=== PATIENT | female | born 1960 | race Caucasian/White ===

== ENCOUNTER 2022-05-13 15:31 | Emergency (ER) | payer BC ==
[~2022-05-13] VITALS: Ht 160 cm; Wt 79.4 kg
--- NOTE | ~2022-05-13 | EKG ---
[facility] [address] [place], [place] [address] Draft EK completed, results pending confirmation PATIENT NAME: CHEOMARISOLSTEFANIE BROWN Electrocardiogram DATE OF : 64 PHYSICIAN: PRELIMINARY REPORT #: [id number] REPORT IS CONFIDENTIAL AND NOT TO BE RELEASED WITHOUT AUTHORIZATION
[~2022-05-13 15:31] MED LIST: AMPHETAMINE SALT5 MG PO; CLONAZEPAM0.5 MG PO; CYCLOBENZAPRINE10 MG PO; FLUOXETINE HCL20 MG PO; FLUTICASONE PRO16 GM NAS; LEVOTHYROXINE125 MCG PO; NEXIUM40 MG PO; PERCOCET 5-3251 EACH PO; PSEUDOEPHEDRINE30 MG PO; TRAZODONE HCL100 MG PO; TRIAMTERENE-HC1 EAC1 PO
--- OUTSIDE RECORDS SUMMARY | 2022-05-13 15:34 | XMS ---
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 [facility]12 MO.) [facility] TOTAL 2 NOTE: Visits indicate total known visits. ED/UCC VISIT TRACKING (12 MO.) 05/13/2022 15:32 [facility] [place] TYPE: Emergency COMPLAINT: - SYNCOPE EPISODES, DIZZY 02/10/2022 15:13 [facility] DIAGNOSES: - Bitten by cat, initial encounter - Animal bite INPATIENT VISIT TRACKING (12 MO.) No inpatient visits to display in this time frame [email or web address]
[2022-05-13] MEDS ORDERED: ESTRADIOL1 MG PO (19:12)
[2022-05-13] MEDS ORDERED: LEVOTHYROXINE137 MCG PO (19:12)
[2022-05-13] MEDS ORDERED: PROGESTERONE200 MG PO (19:12)
[2022-05-13] MEDS ORDERED: QVAR REDIHALE10.6 G1 IH (19:12)
[2022-05-13] MEDS ORDERED: LOSARTAN POTASS25 MG PO (19:12)
[2022-05-13] MEDS ORDERED: KLONOPIN1 MG PO (19:13)
== END 2022-05-13 23:20 | disposition home or self-care (01) ==
LOC: ED 15:31
DX: R55 Syncope and collapse (principal); R73.03 Prediabetes; E03.9 Hypothyroidism, unspecified; Z87.891 Personal history of nicotine dependence; Z88.1 Allergy status to other antibiotic agents; Z91.048 Other nonmedicinal substance allergy status
CPT/HCPCS: 36415; 70450; 71045; 80053; 84484; 85025; 85379; 93005; 93010

== ENCOUNTER 2022-07-06 10:15 | Inpatient (IN) | payer BC ==
[~2022-07-06] VITALS: Ht 160 cm; Wt 84.0 kg
[~2022-07-06 10:15] MED LIST changes: +ESTRADIOL1 MG PO; +KLONOPIN1 MG PO; +LEVOTHYROXINE137 MCG PO; +LOSARTAN POTASS25 MG PO; +PROGESTERONE200 MG PO; +QVAR REDIHALE10.6 G1 INH
--- OUTSIDE RECORDS SUMMARY | 2022-07-06 10:16 | XMS ---
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 Shahab [facility] (12 MO.) [facility] TOTAL 3 NOTE: Visits indicate total known visits. ED/C VISIT TRACKING (12 MO.) 07/06/2022 10:16 [facility] [place] TYPE: Emergency COMPLAINT: - COUGH 05/13/2022 15:32 [facility] [place] TYPE: Emergency COMPLAINT: - SYNCOPE EPISODES, DIZZY DIAGNOSES: - Personal history of nicotine dependence - Other nonmedicinal substance allergy status - Prediabetes - Syncope and collapse - Hypothyroidism, unspecified - Allergy status to other antibiotic agents 02/10/2022 15:13 [facility] [place] TYPE: Emergency DIAGNOSES: - Animal bite - Bitten by cat, initial encounter INPATIENT VISIT TRACKING (12 MO.) No inpatient visits to display in this time frame [email or web address]
--- NOTE | 2022-07-06 15:55 | NUR ---
PT ARRIVED FROM ER. PT TRANSPORTED TO MED/SURG BY THIS RN. PT SLIDS SELF FROM STRETCHER TO BED. PT REPORTS 6/10 CHEST PAIN ON RIGHT SIDE WITH COUGH. NOTED THAT PT IS FEBRIAL. TYELNOL GIVEN (SEE MAR). INTAKE ASSESSMENT DONE. PT ALERT AND OREINTED TO ALL BUT DROWSY AND OCCATIONALLY HAS TROUBEL ANSWERING QUESTIONS. PTS OFTEN ANSWERS FOR HER. PT UP TO BEDSIDE COMODE WITH STAND BY ASSIST. PT VOIDS WITHOUT ISSUE. PT HAS TROUBEL WIPING AND NEEDS ASSISTANCE DUE TO LABORED BREATHING. DEPENDS PLACED, STAND BY ASSIST BACK TO BED. LUNG SOUNDS CORSE THROUGHOUT WITH DEMINISHED BASES. PT HAS FREQUENT COUGH THAT IS OCCATIONALLY PRODUCTIVE WITH THICK CORRAL SPUTUM. PT HAS TROUBLE STOPPING COUGH AND CAN GO ON COUGHING FOR 2-5 MINUTES. PT REMAINS ON 2L O2 BY NC FOR OXYGENATION SUPPORT, OXGYEN SATURATIONS ABOVE 94% ON 2L O2 BY NC. HEART TONES REGULAR. SCAR ON ABDOMEN RELATED TO "WOUND INFECTION FROM WHEN SHE HAD HER APPENDIX OUT." OTHERWISE SKIN WNL AND INTACT. PT REPORTS SHE IS DAIRY AND GLUTAN FREE, DIET ORDERS CHANGED, PTS FAMILY ENCORUAGED TO BRINK FOOD FORM LUCIANO THAT PT ENJOYS. PT DRIFTS OFF TO SLEEP. PTS PRIMARY RN, BARRETT, UPDATED. NO ADDITIONAL NEEDS AT THIS TIME. CALL LIGHT WIHTIN REACH. BED RAILS UP.
--- NOTE | 2022-07-06 18:02 | NUR ---
Patient has been coughing frequently, difficulty eating supper due to cough. States he usually uses an inhaler at home and is requesting a breathing treatment or inhaler to improve her breathing. Dr. Bedolla notified. States he will put in orders
--- NOTE | 2022-07-06 19:00 | NUR ---
REPORT RECEIVED FROM DEYANIRA RN. PT RESTING IN BED WITH FAMILY AT BEDSIDE. RT IN THE ROOM AND PT OXYGEN SATURATION ON 93% ON RA. NO OXYGEN NEEDED AT THIS TIME. CALL LIGHT IN REACH AND BED RAILS UP X1. NO FURTHER NEEDS AT THIS TIME.
--- NOTE | 2022-07-06 19:30 | NUR ---
PT NOTED TO BE ON ROOM AIR AT THIS TIME PER RT. O2 SAT 95%.
--- NOTE | 2022-07-06 21:00 | NUR ---
PT ASSESSMENT COMPLETED, VITAL SIGNS TAKEN, AND I&OS DOCUMENTED. PM MEDICATIONS GIVEN PER EMAR ORDERS. PT A&O X4 AND REPORTING PAIN OF 5/10 WITH COUGHING IN HER CHEST. PT EDUCATED THAT PAIN MEDICATION IS UNAVAILABLE FOR ANOTHER COUPLE HOURS PER EMAR AND TAUGHT ON SPLINTING WITH COUGHING AND REPOSITIONING. PT STATED THAT PAIN IS TOLERABLE UNTIL NEXT PAIN MEDICATION TIME. WARM BLANKET PROVIDED AND WATER REFRESHED. CALL LIGHT IN REACH AND BED RAIL UP X1. IVF RUNNING PER EMAR. PT DENIES FURTHER NEEDS AT THIS TIME.
--- NOTE | 2022-07-06 21:13 | EKG ---
[facility] [address] [place] [address] Signed Sinus tachycardia with occasional premature ventricular complexes Nonspecific ST and T wave abnormality Abnormal ECG When compared with ECG of 13-MAY-2022 19:31, premature ventricular complexes are now present Vent. rate has increased BY 48 BPM Nonspecific T wave abnormality now evident in Inferior leads Confirmed by Pavel Huerta MD () on 07/06/2022 9:13:09 PM Electronically Signed By: PAVEL HUERTA MD 07/06/222112 PATIENT NAME: MARISOL GRIDER Electrocardiogram DATE OF : 64 PHYSICIAN: PAVEL HUERTA MD REPORT #: [id number] REPORT IS CONFIDENTIAL AND NOT TO BE RELEASED WITHOUT AUTHORIZATION
--- NOTE | 2022-07-06 22:25 | NUR ---
PT SLEEPING IN BED, RESPIRATIONS EVEN. FAMILY AT BEDSIDE. BED RAILS UP X1 AND CALL LIGHT IN REACH. NO FURTHER NEEDS AT THIS TIME.
--- NOTE | 2022-07-06 23:55 | NUR ---
INTO ROOM TO CHECK ON PT. PT WAS ASSISTED TO BATHROOM BY HER . PT EDUCATED ON THE IMPORTANCE OF USING HER CALL LIGHT FOR BATHROOM NEEDS. PT COMPLAINING OF CHEST PAIN FROM COUGHING AT A 6/10. PAIN MEDICATION GIVEN PER EMAR. APPLE JUICE PROVIDED PER REQUEST. NO FURTHER NEEDS.
--- NOTE | 2022-07-07 00:10 | NUR ---
INTO ROOM TO ANSWER CALL LIGHT. PT COMPLAINING OF COUGH AND ASKING IF SHE "CAN GET ANYTHING TO HELP." REPOSITIONING OFFERED BUT PT STATES SHE "HURTS TOO MUCH TO MOVE." ANTICIPATING CALL TO MD FOR FUTHER COUGH RELIEF INTERVENTIONS
--- NOTE | 2022-07-07 00:41 | NUR ---
PLACED CALL TO MD REGARDING CHEST PAIN FROM COUGHING. NEW ORDERS RECEIVED. ORDERS VERIFIED USING REPEAT-BACK METHOD.
--- NOTE | 2022-07-07 01:25 | NUR ---
PT SLEEPING IN BED, RESPIRATIONS EVEN AND REGULAR. FAMILY AT BEDSIDE. CALL LIGHT IN REACH. NO FURTHER NEEDS AT THIS TIME.
--- NOTE | 2022-07-07 02:45 | NUR ---
INTO ROOM TO ANSWER CALL LIGHT. PT STATES THAT HER COUGHING IS BETTER BUT HER CHEST PAIN FROM COUGHING IS STILL THERE. PRN MEDICATION GIVEN PER EMAR. RT IN THE ROOM TO ADMINISTER DUONEB. VITAL SIGNS AND I&O COMPLETED AND DOCUMENTED. PT NOW RESTING IN BED, EYES CLOSED. AT BEDSIDE. CALL LIGHT IN REACH AND BED RAILS UP X1.
--- NOTE | 2022-07-07 05:05 | NUR ---
PT ASSESSMENT COMPLETED, VITAL SIGNS, AND I&OS DOCUMENTED. PT A&O X4 AND COMPLAINING OF CHEST PAIN RELATED TO COUGHING. PRN MEDICATIONS GIVEN PER EMAR. PT ASSISTED TO BATHROOM VIA STANDBY ASSIST. PT WEAK WITH AMBULATION DUE TO PAIN BUT OTHERWISE STEADY ON HER FEET. DRAW SHEET CHANGED AND WATER REFRESHED. IVF RUNNING PER ORDER AND CALL LIGHT IN REACH. NO FURTHER NEEDS AT THIS TIME.
--- NOTE | 2022-07-07 06:45 | NUR ---
INTO ROOM TO ANSWER PT CALL LIGHT. PT ASKING ABOUT A DECONGESTANT. EDUCATION PROVIDED REGARDING MEDICATION ORDERS AND IMPORTANCE OF COUGHING SPUTUM UP. PT VERBALIZED UNDERSTANDING. HOT TEA PROVIDED PER REQUEST. IVF RUNNING PER ORDERS. CALL LIGHT IN REACH AND BED RAILS UP X1. NO FURTHER NEEDS AT THIS TIME.
--- NOTE | 2022-07-07 07:40 | NUR ---
RECEIVED REPORT, EYES ON PATIENT, PATIENT IS RESTING IN BED WITH IN ROOM.
[2022-07-07] MEDS ORDERED: AMPHETAMINE SA7.5 MG PO (08:57)
[2022-07-07] MEDS ORDERED: DEXTROAMP-AMPHE10 MG PO (08:58)
[2022-07-07] MEDS ORDERED: BENZONATATE100 MG PO (09:22)
[2022-07-07] MEDS ORDERED: FLUOXETINE HCL40 MG PO (09:24)
[2022-07-07] MEDS ORDERED: TRAZODONE HCL150 MG PO (09:25)
[2022-07-07] MEDS ORDERED: METFORMIN HCL500 M1 PO (09:26)
[2022-07-07] MEDS ORDERED: LEVOTHYROXINE125 MCG PO (09:27)
[2022-07-07] MEDS ORDERED: HYDROXYZINE HCL25 MG PO (11:00)
[2022-07-07] MEDS ORDERED: VENTOLIN HFA18 GM INH (11:03)
--- NOTE | 2022-07-07 11:22 | NUR ---
BOTH PREVIOUS IV SITE INFILTRATED WITH AZITHROMYCIN ADMINISTRATION. NEW IV STARTED. 1 FAILED ATTEMPT BY CYNTHIA LOMELI, 1 FAILED ATTEMPT BY THIS NURSE. PATIENT TOLERATED WELL. REQUESTING SOMETHING STRONGER THAN TYLENOL FOR PAIN, DR. HUERTA NOTIFIED, STATES HE WILL PUT IN ORDERS FOR MEDICATION. ALSO REQUESTING NEB TXGodfrey YEE, RT, NOTIFIED.
--- NOTE | 2022-07-07 12:13 | NUR ---
PATIENT IN ROOM, RT AND IN ROOM, PATIENT IS UP EATING SOUP. PATIENT IS REQUESTING PAIN MEDICATION. I TOLD THE PATIENT THAT THE DOCTOR IS WORKING ON HER MEDICATION ORDERS INCLUDING ADDING A PAIN MEDICATION.
--- NOTE | 2022-07-07 13:01 | NUR ---
NURSE WITH PATIENT, PATIENT STATED THAT SHE FELL THE NIGHT BEFORE 07/05/22 AT AROUND 0300 WHILE WEARING SOCKS. SHE FELL INTO A STAINLESS STEEL OBJECT THAT LEFT A BRUISE ON HER UPPER ABDOMINAL AREA, VISUALIZED BY THE NURSE AT THIS TIME. PATIENT STILL WAITING ON PAIN MEDICATION, ORDERS FOR ADDITIONAL PAIN MEDICATION HAS NOT BEEN UPDATED AT THIS TIME.
--- NOTE | 2022-07-07 14:42 | NUR ---
EYES ON PATIENT, PATIENT WAS COUGHING HEAVILY, NURSE GAVE MEDICATIONS AND PERFORMED ASSESSMENT, PATIENT IS NOW RESTING CALMLY IN BED.
--- NOTE | 2022-07-07 16:36 | NUR ---
MED REC COMPLETE
--- NOTE | 2022-07-07 16:56 | NUR ---
Lying in bed. Denies needs at this time. States she continues to use IS intermittently. Call light in reach, bed rails up X2.
--- NOTE | 2022-07-07 19:10 | NUR ---
REPORT RECEIVED FROM CYNTHIA MCMILLAN. CARE RESUMED BY THIS RN AT THIS TIME. PT SLEEPING IN BED, RESPIRATIONS EVEN. AT BEDSIDE. CALL LIGHT IN REACH AND BED RAILS UP X1. NO FURTHER NEEDS AT THIS TIME.
--- NOTE | 2022-07-07 20:45 | NUR ---
INTO ROOM TO ANSWER CALL LIGHT. PT ASKING ABOUT MEDICATION FOR HER COUGH. PRN MEDICATIONS GIVEN, ALONG WITH PM MEDS. WATER REFRESHED. CALL LIGHT IN REACH. NO FURTHER NEEDS AT THIS TIME.
--- NOTE | 2022-07-07 22:30 | NUR ---
PT ASSESSMENT COMPLETED, VITAL SIGNS AND I&O DOCUMENTED. IVF RUNNING PER EMAR ORDER. PT APPEARS DROWSY AND IS SLOW TO RESPOND, BUT ANSWERS QUESTIONS APPROPRIATELY. PT REQUESTING DUONEB AND RATING PAIN 9/10 WITH COUGHING. PRN MEDICATIONS GIVEN PER EMAR ORDERS. WATER REFRESHED. CALL LIGHT IN REACH, AT BEDSIDE. NO FURTHER NEEDS AT THIS TIME.
--- NOTE | 2022-07-08 00:54 | NUR ---
INTO ROOM TO ANSWER CALL LIGHT. PT REQUESTING PRN MEDICATIONS AND COMPLAINING OF 10/10 PAIN WITH COUGH. PT REQUESTING TO TAKE ONLY HALF OF THE PRESCRIBED DOSE OF TYLENOL BECAUSE IT "SOMETIMES UPSETS HER STOMACH." WATER REFRESHED AND ICE PACK PROVIDED PER PT REQUEST. NO FURTHER NEEDS.
--- NOTE | 2022-07-08 02:32 | NUR ---
PT RESTING IN BED, WITH EYES CLOSED, RR EVEN AND REGULAR.
--- NOTE | 2022-07-08 04:00 | NUR ---
NEW IV STARTED BY. PATIENT TOLERATED WELL. SUSANA MARIE REMAINS IN ROOM.
--- NOTE | 2022-07-08 04:15 | NUR ---
INTO ROOM TO ANSWER CALL LIGHT. PT STATES "SOMETHING IS WRONG WITH MY IV." IV SITE INFILTRATED. IV DC'D AND NEW IV STARTED BY RN. FLUIDS RUNNING PER EMAR ORDER. PT ALSO REQUESTING MEDICATION FOR COUGH. PRN MEDICATION GIVEN PER ORDER. PT ASSESSMENT COMPLETED, VITAL SIGNS AND I&O DOCUMENTED. WATER REFRESHED. CALL LIGHT IN REACH, AT BEDSIDE.
--- NOTE | 2022-07-08 06:30 | NUR ---
INTO ROOM TO ANSWER CALL LIGHT. PT ASKING ABOUT PAIN MEDICATION, RATING CHEST PAIN FROM COUGHING AT 8/10. PRN PAIN MEDICATION GIVEN PER ORDER. WATER REFRESHED, KLEENEX PROVIDED. EDUCATED ON SPLINTING WITH COUGH FOR PAIN. PT VERBALIZED UNDERSTANDING. IS USED WHILE AT BEDSIDE. CALL LIGHT IN REACH.
--- NOTE | 2022-07-08 07:20 | NUR ---
Received patient report, patient is awake in bed with , has ice pack on chest.
--- NOTE | 2022-07-08 09:50 | NUR ---
PATIENT SITTING UP IN BED, VISITOR AT BEDSIDE. VITALS AND I&O'S CHARTED. CALL LIGHT IN REACH. FRESH WATER GIVEN. NO FURTHER NEEDS AT THIS TIME.
--- NOTE | 2022-07-08 12:13 | NUR ---
In room with patient who is coughing uncontrollably, O2 saturation in mid 80's but up to mid 90's when she can focus on breathing. Pain medication and cough syrup given to patient, RT called down for duo neb treatment.
--- NOTE | 2022-07-08 14:10 | NUR ---
PATIENT GIVEN 2 TYLENOL AND SCHEDULED FLEXERIL FOR 6/10 RIGHT CHEST PAIN, R/T PNEUMONIA.
--- NOTE | 2022-07-08 14:27 | NUR ---
RT in giving neb at this time. Patient states pain is decreasing since PRN medication administered. Denies other needs. Spouse at bedside. call light in reach, bed rails up X2.
--- NOTE | 2022-07-08 14:45 | NUR ---
PT ALERT, ORIENTED AND PLEASANT. PT REQUESTED VISIT FROM -WILL INFORM. HAD PRAYER WITH PT, WILL FOLLOW
--- NOTE | 2022-07-08 14:47 | NUR ---
PT VITALS/I&O'S DOCUMENTED. PT TEMP OF 100.3. RN NOTIFIED. REPLACED ICE PACK AND GIVE A COLD WASH CLOTH FOR FOREHEAD, REFILLED WATER. FAMILY MEMBER IN ROOM. NO OTHER REQUESTS, CALL LIGHT IN REACH.
--- NOTE | 2022-07-08 16:57 | NUR ---
Repeat chest xray ordered to rule out rib fx, d dimer elevated. Patient scheduled for CT scan at 2100. Pain decreases with oral analgesics and ice packs to chest. Cough decreases with robitussin. Temperature slightly elevated this afternoon at 100.3.
--- NOTE | 2022-07-08 19:15 | NUR ---
REPORT RECEIVED FROM DAYSHIFT RN. CARE RESUMED AT THIS TIME. PT SITTING UP IN BED. COLD WASHCLOTH PROVIDED FOR FOREHEAD AND ICE WATER REFRESHED. EDUCATED ON PLAN OF CARE FOR THE NIGHT. PT VERBALIZED UNDERSTANDING. NO FURTHER NEEDS AT THIS TIME.
--- NOTE | 2022-07-08 19:43 | NUR ---
CALL PLACED TO MD. GARCIA REQUESTING "SOMETHING FOR HER ANXIETY BEFORE THE CT SCAN." NEW ORDERS RECEIVED AND VERIFIED USING THE REPEAT BACK METHOD.
--- NOTE | 2022-07-08 20:37 | NUR ---
PT ASSESSMENT COMPLETED, VITAL SIGNS AND I&O'S DOCUMENTED. MEDICATIONS GIVEN PER EMAR AND PT EDUCATED ON CT SCAN AND CARE PLAN FOR THE NIGHT. PT A&O X4 AND DENIES ANY PAIN AT THE TIME. AT BEDSIDE. NO FURTHER NEEDS AT THIS TIME.
--- NOTE | 2022-07-08 21:20 | NUR ---
PATIENTS APPROACHED RN STATION. PATIENTS IS UPSET AND IS WANTING ALL MEDICATIL RECORDS DUE TO SON AND DAUGHTER BEING IN THE MEDICAL PROFESSION. EDUCATED HIM ON PATIENT PORTAL ACCESS. Pt STATED "NO ONE ANSWERED WHEN WE GOT HERE AND I CALLED AT 4PM TODAY" EDUCATED HIM THAT NO ONE IS IN THAT DEPARTMENT AT NIGHT OR WEEKENDS AND HE WOULD HAVE TO WAIT UNTIL AM. OFFERED TO UPDATE PATIENTS CHILDREN, PtS STATED "I NEED IT ON PAPER". AGAIN EDUCATED HIM THAT HE WOULD NEED TO CONTACT MEDICAL RECORDS IN THE AM. OFFERED TO HAVE MD ROUND IN AM WHEN PATIENTS CHILDREN ARE AVAILABLE. PATIENTS STATED "HER CHILDREN THINK THAT THIS HOSPITAL IS DOES NOT HAVE ADEQUATE RESOURCES FOR HOW SICK SHE IS". REASSURED PATIENT THAT HIS IS STABLE AND IF THE HOSPITALIST THOUGHT SHE WAS TO SICK FOR THE MEDICAL FLOOR SHE WOULD BE TRANSFERRED TO CCU OR SHIPPED OUT. PtS VERBALIZES UNDERSTANDING. PtS STATED "SHE IS RECEIVING GREAT CARE AND I DONT WATNT ANYONE TO THINK WE ARE MAD, OUR SHILDREN ARE JUST PRESSURING FOR INFO". EDUCATED PtS TO ASK WHEN CHILDREN ARE AVAILABLE TOMORROW SO THEY CAN BE ON THE PHONE DURING ROUNDS. HE STATED "THEY HAVE THE DAY OFF TOMORROW" MADE PLAN WITH PATIENT AND PATIENTS TO CALL DURING AM ROUNDS SO CHILDREN COULD ASK DR BECKMAN QUESTIONS ABOUT PATIENTS CARE.
--- NOTE | 2022-07-08 21:49 | NUR ---
PT BACK FROM CT. PT RESTING IN BED WITH NO CONCERNS. NO S/S OF REACTIONS FROM CONTRAST. PM MEDICATIONS GIVEN PER EMAR. CALL LIGHT IN REACH.
--- NOTE | 2022-07-09 | NUR ---
INTO ROOM TO ANSWER CALL LIGHT. PT UNABLE TO STOP COUGHING. HEAD OF BED ELEVATED AND PRN MEDICATIONS GIVEN. RT IN ROOM TO ADMINISTER DUONEB TREATMENT. HOT WATER WITH HONEY PROVIDED PER REQUEST. PT NOW SITTING UP IN BED, RESTING, SATURATIONS 95% ON RA. CALL LIGHT IN REACH.
--- NOTE | 2022-07-09 00:30 | NUR ---
PT RESTING IN BED WITH EYES CLOSED, RESPIRATIONS EVEN. AT BEDSIDE AND CALL LIGHT IN REACH. NO FURTHER NEEDS AT THIS TIME.
--- NOTE | 2022-07-09 01:00 | NUR ---
INTO ROOM TO ANSWER CALL LIGHT. PT REQUESTING "SOMETHING MORE FOR HER COUGH." PRN MEDICATION GIVEN PER EMAR. DENIES FURTHER NEEDS AT THIS TIME.
--- NOTE | 2022-07-09 02:00 | NUR ---
PT RESTING IN BED, EYES CLOSED, RESPIRATIONS EVEN. CALL LIGHT IN REACH. NO FURTHER NEEDS AT THIS TIME.
--- NOTE | 2022-07-09 03:29 | NUR ---
PT SLEEPING IN BED, RESPIRATIONS EVEN. AT BEDSIDE. CALL LIGHT IN REACH.
--- NOTE | 2022-07-09 05:24 | NUR ---
INTO ROOM TO ANSWER CALL LIGHT. PT REQUESTING MEDICATION FOR HER COUGH. PRN MED GIVEN PER EMAR ORDERS. ASSESSMENT COMPLETED, VITAL SIGNS AND I&O'S DOCUMENTED. 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 EDUCATED PT ON TAKING PROBIOTICS AND EATING YOGURT WHILE ON PO ANTIBIOTICS. PT VERBALIZED UNDERSTANDING. CALL LIGHT IN REACH. NO FURTHER NEEDS.
--- NOTE | 2022-07-09 05:50 | NUR ---
INTO ROOM FOR PT CALL LIGHT. PT REQUESTING PRN MEDICATION. GIVEN PER EMAR ORDERS. PT AT BEDSIDE. CALL LIGHT IN REACH.
--- NOTE | 2022-07-09 07:00 | NUR ---
REPORT RECEIVED FROM CYNTHIA MEZA AND CYNTHIA CRAIG. PT LAYING IN BED WITH AT BEDSIDE. PT REQUESTING TO TAKE A SHOWER SOME TIME THIS AM. MADE PLAN FOR SHOWER.
--- NOTE | 2022-07-09 08:00 | NUR ---
IN TO GIVE MORNING MEDICATIONS. PT LAYING IN BED WITH AT BEDSIDE. PT EXPRESSES CONCERN ABOUT TAKING ABX AND INITIALLY DECLINES TO TAKE ABX. EXTENSIVE EDUCATION PROVIDED BY THIS RN, CYNTHIA TORRES, CYNTHIA BRAR AND DR. DONALDSON. ASSESSMENT COMPLETE. UPPER LUNGS SOUND CLEAR. LOWER LOBES ARE DIMINISHED. PT CONTINUES TO HAVE A DRY NONPRODUCTIVE COUGH. RT IN TO GIVE DUONEB TREATMENT. NO OTHER NEEDS AT THIS TIME. CALL LIGHT IN REACH. PT LAYING IN BED.
[2022-07-09] MEDS ORDERED: AMOX TR-K CLV1 EAC1 PO (09:12)
[2022-07-09] MEDS ORDERED: METRONIDAZOLE250 MG PO (09:12)
[2022-07-09] MEDS ORDERED: BENZONATATE100 MG PO (09:13)
--- NOTE | 2022-07-09 09:43 | NUR ---
IN TO GIVE MEDICATIONS. PT TAKE PO MEDICATION WITH NO ISSUES. PT AGREES TO TAKE PO ABX AFTER EDUCATION. PO ABX GIVEN AT THIS TIME. NO OTHER NEEDS AT THIS TIME. CALL LIGHT IN REACH.
--- NOTE | 2022-07-09 10:15 | NUR ---
IN TO GO OVER DISCHARGE SUMMARY WITH CYNTHIA TORRES. PT REQUESTING DUONEB TREATMENT BEFORE LEAVING. RT CALLED. PT SITTING IN BED WITH AT BEDSIDE. RT IN ROOM TO GIVE DUONEB. NO OTHER NEEDS FROM THIS RN OR CYNTHIA TORRES AT THIS TIME. CALL LIGHT IN REACH.
--- NOTE | 2022-07-09 10:30 | NUR ---
In and spoke with pt and spouse. Pt stating she needs a shower chair for home. Gave her [employer] brochure and let them know this is a lending closet. She denies other needs and is ready for dc as we speak.
--- NOTE | 2022-07-09 10:30 | NUR ---
PT READY FOR DISCHRAGE. PT UP INDEPENDANTLY IN ROOM BRUSHING HAIR AND CHANING CLOTHES. PT REQUESTS A BREATHING TREATMENT PRIOR TO DISCHARGE, PROVIDED BY LELA VOGEL (RT). [facility] CASE MANAGEMENT, TO ROOM TO REVIEW HOME NEEDS, INFORMATION AND PAMPHLETS WITH RESOURCES PROVIDE TO PT BY [facility]. NO ADDITIONAL REQUESTS OR CONCERNS. PT TRANSFERS SELF TO WHEELCHAIR. PT WHEELED FROM MED/SURG TO MEET AT FRONT OF HOSPITAL.
--- NOTE | 2022-07-09 13:47 | NUR ---
CONNECTED WITH PT'S OUTSIDE . HE SEEMS VERY ANXIOUS TO GET PT HOME. GAVE ENCOURAGEMENT AND BLESSING WILL FOLLOW
== END 2022-07-09 10:40 | disposition home or self-care (01) | DRG 871 ==
LOC: ED 10:15 → MS 10:17
PROVIDERS: ADMIT Family Medicine; ATTEND Internal Medicine
DX: A41.9 Sepsis, unspecified organism (principal); J18.9 Pneumonia, unspecified organism; E87.6 Hypokalemia; Z20.822 Contact with and (suspected) exposure to COVID-19; E03.9 Hypothyroidism, unspecified; F41.9 Anxiety disorder, unspecified; R73.03 Prediabetes; F32.A Depression, unspecified; M19.90 Unspecified osteoarthritis, unspecified site; E80.6 Other disorders of bilirubin metabolism; Z87.891 Personal history of nicotine dependence; Z90.49 Acquired absence of other specified parts of digestive tract; Z98.890 Other specified postprocedural states; Z88.1 Allergy status to other antibiotic agents; Z88.8 Allergy status to other drugs, medicaments and biological substances; Z79.899 Other long term (current) drug therapy
CPT/HCPCS: 36415; 71045; 71260; 80048; 80053; 80076; 81001; 83605; 83735; 83880; 85025; 85379; 87040; 87502; 93005; 93010; 94640; 94668; 94760; 96365; 96375; 99285-25; A9270; J0456; J0696; J1200; J1650; J1720; J1940; J7030; J7060; Q9967; U0003

== ENCOUNTER → 2025-05-01 | Outpatient (CLI) | payer BC ==
[~2025-05-01] MED LIST changes: +AMOX TR-K CLV1 EAC1 PO; +AMPHETAMINE SA7.5 MG PO; +BENZONATATE100 MG PO; +DEXTROAMP-AMPHE10 MG PO; +FLUOXETINE HCL40 MG PO; +HYDROXYZINE HCL25 MG PO; +METFORMIN HCL500 M1 PO; +METRONIDAZOLE250 MG PO; +TRAZODONE HCL150 MG PO; +VENTOLIN HFA18 GM INH
== END ==
LOC: RAD 15:07
PROVIDERS: ATTEND Nurse Practitioner Family
DX: S63.502A Unspecified sprain of left wrist, initial encounter (principal); M18.9 Osteoarthritis of first carpometacarpal joint, unspecified
CPT/HCPCS: 73110